=== PATIENT | male | born 1960 | race Caucasian/White ===

== ENCOUNTER → 2022-10-18 | Outpatient (RCR) | payer BC | END | disposition home or self-care (01) | LOC: WSPT | DX: M25.551 Pain in right hip (principal); Z96.641 Presence of right artificial hip joint ==

== ENCOUNTER 2022-11-17 09:44 | Outpatient (RCR) | payer BC | END 2022-12-16 | disposition home or self-care (01) | LOC: WSPT | DX: M16.11 Unilateral primary osteoarthritis, right hip (principal) ==